=== PATIENT | male | born 1950 | race Caucasian/White ===

== ENCOUNTER 2017-01-28 06:32 | Emergency (ER) | payer SELFPAY ==
--- NOTE | ~2017-01-28 | ER ---
PATIENT'S NAME: L[facility] AGE: 66 Y [address] ROOM: [place] [address] LOCATION: [facility] ADMIT DATE: 01/28/2017 ER/Outpatient Report DISCHARGE DATE: 01/28/2017 FAMILY PHYSICIAN: Physician, Unknown ATTENDING PHYSICIAN: Vira Bird Time of Arrival: 0632 hours. Time Seen: 0640 hours. IDENTIFICATION: A 66-year-old male. CHIEF COMPLAINT: Diarrhea. HISTORY OF PRESENT ILLNESS: The patient is a 66-year-old male from [place], [place], who presents with his significant other. They state he has had diarrhea "nonstop" since early Monday morning. He had one emesis early Monday morning and then has had none since then, but has had diarrhea with any p.o. intake, very watery. No blood in his stools. He traveled around the [facility], but not outside of [facility]. He denies any ingestion of uncooked meats. He has no new pets. No ill contacts. He was on antibiotics at the end of October. He has had no fever or chills. As far as pain, he said his stomach tends to feel bloated before he has diarrhea and then is relieved after that. ALLERGIES: NO KNOWN DRUG ALLERGIES. CURRENT MEDICATIONS: 1. Sildenafil 100 mg p.r.n. 2. Cholecalciferol 2000 units daily. 3. Pantoprazole 40 mg daily. 4. Melatonin 5 mg daily. 5. Centrum Silver daily. 6. Aspirin 325 mg daily. 7. Budesonide 160. 8. Formoterol 4.5 mcg. 9. Albuterol inhaler p.r.n. MEDICAL PROBLEMS: History of previous CVA; coronary artery disease, status post [place] 20 years ago; COPD; gastroesophageal reflux disease. PATIENT'S NAME: L[facility] AGE: 66 Y [address] ROOM: [place] [address] LOCATION: [facility] ADMIT DATE: 01/28/2017 ER/Outpatient Report DISCHARGE DATE: 01/28/2017 FAMILY PHYSICIAN: , Unknown ATTENDING PHYSICIAN: Vira Bird PRIOR SURGERIES: Unknown. FAMILY HISTORY: Unknown. SOCIAL HISTORY: The patient lives in [place]. He has a significant other. Tobacco use, one pack per day for 50 years. Alcohol use, occasional beer. He is disabled. No drug use. REVIEW OF SYSTEMS: All systems reviewed and negative other than what is noted in the HPI. PHYSICAL EXAMINATION: VITAL SIGNS: Height 5 feet 7 inches, weight 75.1 kg, blood pressure 137/78, pulse 74, respirations 17, temp 98.1, sats 95% on room air. GENERAL: A 66-year-old male, in no acute distress. HEENT: Normocephalic, atraumatic. Ears: TMs translucent, both ears. Nose: Mucosa pink, no lesions. Mouth: No lesions. Pharynx benign. NECK: Supple. No lymphadenopathy. LUNGS: Clear to auscultation. HEART: Regular rate and rhythm. ABDOMEN: Soft, nondistended, and nontender. SKIN: [place], warm, and dry. No lesions or rashes noted. NEUROLOGIC: The patient is alert and oriented x4. Cranial nerves 2 through 12 grossly intact. Motor strength 5/5 throughout. Sensation is intact to light touch. EMERGENCY DEPARTMENT COURSE: Orthostatic blood pressures were checked, and no orthostatic changes. Please refer the nurse's notes. An IV was initiated and 1 L of normal saline was infused. The patient had no nausea now and did not want any medicine for nausea. UA is unremarkable. Stool for C. diff negative. Stool for O and P negative. Stool culture pending. Sodium 143, potassium 3.9, chloride 110, CO2 of 25, BUN 14, creatinine 1, blood sugar 85. Liver enzymes normal. Amylase 35, lipase 204. Fecal occult blood negative. Fecal leukocytes few. Hemoglobin 15.8, hematocrit 49, platelets 223, white count 8.3 with normal differential. IMPRESSION: Diarrhea. PLAN: PATIENT'S NAME: [facility] AGE: 66 Y [address] ROOM: [place] [address] LOCATION: ED ADMIT DATE: 01/28/2017 ER/Outpatient Report DISCHARGE DATE: 01/28/2017 FAMILY PHYSICIAN: Physician, Unknown ATTENDING PHYSICIAN: Vira Bird Diarrhea handout. Fluids and rest. Diet as tolerated. [facility] Zofran 4 mg 1 p.o. q.6 hours p.r.n. nausea, dispensed 6 with 0 refills. All questions were answered. MD HENRRY UREÑA/macho /[id number] d: 01/28/172041 t: 02/03/17 0756, OUTPATIENT REPORT
[2017-01-28 07:26] LABS: BASOPHIL # 0.1 K/uL (0.0-0.2); BASOPHIL % 0.8 %; EOSINOPHIL # 0.1 K/uL (0.0-0.5); HEMOGLOBIN 15.8 g/dL (11.0-16.0); IMMATURE GRANULOCYTE # 0.1 K/uL (0.0-0.3); IMMATURE GRANULOCYTE % 0.8 %; LYMPHOCYTE # 1.1 K/uL (0.8-4.0); LYMPHOCYTE % 13.1 %; MCH 31.7 pg (27.0-34.0); MCHC 32.2 gm/dL (32.0-36.5); MCV 98.4 fl (83.0-98.0); MONOCYTE # 1.1 K/uL (0.0-1.0); MONOCYTE % 13.1 %; MPV 11.4 fl (9.4-12.4); NEUTROPHIL # (ANC) 5.9 K/uL (1.4-9.0); NEUTROPHIL % 71.2 %; NRBC % 0 /100WBC (0-0.00); PLATELET COUNT 223 K/uL (150-450); RBC 4.98 M/uL (3.50-5.50); RDW-CV 13.2 % (11.9-14.6); WBC 8.3 K/uL (4.0-11.0)
[2017-01-28 07:37] LABS: ALBUMIN 3.8 gm/dL (3.5-5.0); ALK PHOS 97 IU/L (33-138); ALT 33 IU/L (12-78); BLOOD UREA NITROGEN 14 mg/dL (6-24); CHLORIDE 110 mMol/L (96-110); CO2 25 mMol/L (22-32); ESTIMATED GFR (MDRD EQUATION) > 60; SODIUM 143 mMol/L (135-145); TOTAL BILIRUBIN 0.2 mg/dL (0.0-1.5); TOTAL PROTEIN 7.4 g/dL (6.0-8.4)
[2017-01-28 07:41] LABS: ANION GAP 11.9 (10.0-19.0); AST 33 IU/L (10-40); POTASSIUM 3.9 mMol/L (3.7-5.1)
[2017-01-28 07:43] LABS: BILIRUBIN URINE NEGATIVE (NEGATIVE); BLOOD URINE 10 /UL (NEGATIVE); COLOR URINE YELLOW (YELLOW); GLUCOSE URINE NEGATIVE (NEGATIVE); KETONE URINE 5 mg/dL (NEGATIVE); LEUKOCYTES URINE 25 /UL (NEGATIVE); NITRITE URINE NEGATIVE (NEGATIVE); PROTEIN URINE 30 mg/dL (NEGATIVE); SPEC GRAVITY URINE 1.025 (1.003-1.035); TURBIDITY URINE CLEAR (CLEAR); UROBILINOGEN URINE 1 mg/dL (NORMAL)
[2017-01-28 07:54] LABS: BACTERIA URINE NEGATIVE (NEGATIVE); EPITHELIAL URINE NEGATIVE #/HPF (NEGATIVE); MUCUS URINE 1+ (NEGATIVE); RBC URINE RARE #/HPF (NEGATIVE); WBC URINE RARE #/HPF (NEGATIVE)
== END 2017-01-28 08:53 | disposition disaster alternative care site (69) ==
LOC: GMED 06:32
PROVIDERS: Family Medicine
DX: R19.7 Diarrhea, unspecified (principal); I25.2 Old myocardial infarction; K21.9 Gastro-esophageal reflux disease without esophagitis; J44.9 Chronic obstructive pulmonary disease, unspecified; Z79.82 Long term (current) use of aspirin
CPT/HCPCS: J7030